=== PATIENT | female | born 1960 | race Caucasian/White ===

== ENCOUNTER 2025-03-08 16:57 | Emergency (ER) | payer OTHER, SELFPAY ==
[2025-03-08 17:03] VITALS: BP 188/90
--- NOTE | 2025-03-08 21:48 | ED.MUSCINJ ---
HPI-Injury
General
Chief Complaint: Musculo-Skeletal Complaint
Source: patient
Exam Limitations: none
Time Seen by Provider: 03/08/25 19:03
Nursing documentation reviewed up to this point in time: agreed with
History of Present Illness-Injury
Is this injury a work related problem?: No
Is pt an associate of [facility]/[place]?: No
Initial Injury comments:
Patient states she was standing in her pantry, shifted weight on foot and felt a crunching sensation to left lat foot radiating to plantar foot. Pain continues. TO ED [facility] family for eval.
Past History
Past History
ED Past Medical History: Asthma, HTN and Hypercholesterolemia
ED Past Surgical History: Other
Social History
Tobacco: Smoker
Drug: None
Personal: Single
Living: with family
Employment: Not employed
Family History
Family History: Other
Review of Systems
Review of Systems
Allergies reviewed?: Yes
All Other Systems: ROS reviewed and negative except as documented in HPI and ROS
Constitutional: Reports no symptoms
EENT: Reports no symptoms
Respiratory: Reports no symptoms
Cardiac: Reports no symptoms
ABD/GI: Reports no symptoms
Musculoskeletal: Reports joint pain (pain to left lateral and plantar foot)
Skin: Reports no symptoms
Neurological: Reports no symptoms
Psychiatric: Reports no symptoms
Musculoskeletal Injury Exam
Musculoskeletal Injury Exam
Left Lateral Foot:
Pain with Movement?: Moderate
Tender to palpation?: Moderate
Soft tissue swelling?: None
External deformity and angulation?: None
Joint effusion?: None
Contusion?: None
Hematoma-local bleeding into tissue?: None
Strain- Sprain- Tear (Connective tissue injury)?: Moderate
Crepitus with movement?: No
Joint instability?: No
Malalignment/deformity?: No
Range of motion: Full
Distal skin color and temperature: normal-warm & good color
Capillary Refill: normal
Normal distal neurovascular exam?: Yes
Phy Exam
General Physical Exam
General Presentation: well appearing and no apparent distress
General age: appears stated age
General Skin: warm and dry
General Habitus: normal
General Mental: alert
Musculoskeletal Exam
Musculoskeletal Exam: full ROM and neuro vasc intact
Skin Exam
Skin Exam: normal color, warm/dry and no rash
Psychiatric Exam
Psychiatric Exam: normal mood/affect
Injury Course
Orders/Labs/Results
Orders:
Orders
03/08/25 17:08
CR Ankle - Left Min 3 Views Urgent
Comment:
Reason For Exam: fall
CR Foot - Left 2 Views Urgent
Comment:
Reason For Exam: pain
03/08/25 20:12
Ortho Boot Left- Treatment ONCE
Short or tall?: Tall
03/08/25 20:18
Crutches-Treatment ONCE
*Radiology
Radiology exam reviewed: radiology read reviewed
*Pulse Oximetry
SaO2: 96
Oxygen Mode of Delivery: Room air
Patient hypoxic: no
*Critical Care Note
Total Time (30-74mins, 75-104mins- exclusive of procedures): Not Applicable
ED Attending Note
-
Portions of this chart may have been created with voice recognition software.� Occasional wrong word or��sound alike� substitutions may have occurred due to the inherent limitations of voice recognition software.
Discharge Plan
Departure
Patient Disposition: Home (Routine Discharge)
Date of Disposition: 03/08/25
Time of Disposition: 20:12
Patient with high blood pressure during this ER visit?: No
Condition: Good
Covid-19: Not Applicable
Discharge Problem:
Foot sprain
Instructions: Sprain (DC), Ibuprofen, Using Cold for Pain
Prescriptions:
No Action
metoprolol tartrate 100 MG tablet
100 mg PO BID
pregabalin 100 MG capsule
100 mg PO TID
Patient Comments:
12/22/2020: last filled 11/04/20, 90 tabs for 30 days from [facility]
meloxicam [Mobic] 15 MG tablet
15 mg PO DAILY
ipratropium-albuterol 3 ML solution for nebulization
3 ml inhalation R QID Qty: 1 0RF
ipratropium-albuterol 3 ML solution for nebulization
3 ml inhalation R [id number] PRN (Reason: shortness of breath) Qty: 1 0RF
atorvastatin 10 MG tablet
10 mg PO QPM Qty: 30 0RF
lisinopril 20 MG tablet
20 mg PO BID Qty: 60 0RF
amlodipine 5 MG tablet
5 mg PO BID Qty: 60 0RF
metformin 1,000 MG tablet
1,000 mg PO BID@0800,1700 Qty: 60 0RF
insulin aspart U-100 [Novolog FlexPen U-100 Insulin] 300 UNITS/3 ML insulin pen
8 units SC AC Qty: 1 0RF
dapagliflozin propanediol [Farxiga] 10 MG tablet
10 mg PO DAILY Qty: 30 0RF
insulin glargine [Lantus Solostar U-100 Insulin] 300 UNITS/3 ML insulin pen
24 units SC HS Qty: 1 0RF
(DME) pen needle, diabetic [BD Ultra-Fine Micro Pen Needle] 1 EACH needle
1 ea [facility] ACHS Qty: 200 0RF
Rx Instructions:
BD CHRISTA 4mm pen needle
prednisone 10 MG tablet
10 mg PO .TAPER Qty: 45 0RF
Rx Instructions:
Take 50mg daily x3days, 40mg daily x3days,
30mg daily x3days, 20mg daily x3days,
10mg daily x3days
Referrals:
Ulysses Xei MD [Active, Orthopedics]
Referral Note: Follow up if your symptoms do not improve over the next week.
Phuong Ramirez CRNP [Family Provider]
Interventions
Interventions:
*Risk Screen - Suicide Last Done: 03/08/25 17:07
*General Assessment Last Done: 03/08/25 17:07
*ED COVID-19 Vaccine History Last Done: 03/08/25 17:07
*Nursing Disposition Last Done: 03/08/25 21:03
ED-Musculoskeletal Assessment Last Done: 03/08/25 20:41
Discharge Date and Time
Discharge Date/Time: 03/08/25 21:08
Print Language: RWANDAN
== END 2025-03-08 21:08 | disposition home or self-care (01) ==
LOC: EMR 16:57
PROVIDERS: EMERGENCY PHYSICIAN Student in an Organized Health Care Education/Training Program; FAMILY PHYSICIAN Nurse Practitioner Family
DX: S93.602A Unspecified sprain of left foot, initial encounter (principal); X58.XXXA Exposure to other specified factors, initial encounter; I10 Essential (primary) hypertension; E78.00 Pure hypercholesterolemia, unspecified; J45.909 Unspecified asthma, uncomplicated; F17.200 Nicotine dependence, unspecified, uncomplicated; Z79.84 Long term (current) use of oral hypoglycemic drugs; Z79.4 Long term (current) use of insulin
CPT/HCPCS: 99284; 73610; 73620